=== PATIENT | male | born 1965 | race Two or more races ===

== ENCOUNTER 2021-11-21 19:49 | Emergency (ER) | payer BC, OTHER ==
[~2021-11-21] VITALS: Ht 172.7 cm; Wt 86.0 kg
[2021-11-21 20:21] VITALS: BP 142/88
== END 2021-11-22 02:28 | disposition left against medical advice (07) ==
LOC: EDBD 19:51 → ER 19:51
DX: M25.511 Pain in right shoulder (principal); Z53.21 Procedure and treatment not carried out due to patient leaving prior to being seen by health care provider
CPT/HCPCS: 73030